=== PATIENT | female | born 2000 | race Two or more races ===

== ENCOUNTER 2024-09-04 07:09 | Emergency (ER) | payer OTHER ==
[~2024-09-04] VITALS: Ht 154.9 cm; Wt 53.5 kg
[2024-09-04] MEDS ORDERED: ZYRTEC10 M3 PO (08:30)
[2024-09-04] MEDS ORDERED: AMOX1TAB5 PO (08:30)
[2024-09-04] MEDS ORDERED: BENZONATATE100 MG PO (08:30)
[2024-09-04] MEDS ORDERED: NASAL MIST126 ML NASAL (08:30)
[2024-09-04 08:39] VITALS: BP 111/74; O2SAT 100
== END 2024-09-04 08:40 | disposition home or self-care (01) ==
LOC: ER 07:11
DX: H66.90 Otitis media, unspecified, unspecified ear (principal); J00 Acute nasopharyngitis [common cold]; Z88.6 Allergy status to analgesic agent